=== PATIENT | female | born 2000 | race Two or more races ===

== ENCOUNTER 2021-04-28 17:55 | Emergency (ER) | payer OTHER ==
[~2021-04-28] VITALS: Ht 160 cm; Wt 86.2 kg
[~2021-04-28 17:55] MED LIST: COCET TABLET1 EACH; KETO10TA2 PO; PERCOCET 5/3251 TAB PO
[2021-04-28] MEDS ORDERED: PEPCID AC20 MG PO (22:50)
[2021-04-28] MEDS ORDERED: INTESTINEX680 M1 PO (22:50)
[2021-04-28] MEDS ORDERED: NAPROXEN500 MG PO (22:50)
== END 2021-04-28 22:52 | disposition home or self-care (01) ==
LOC: ER
DX: R10.2 Pelvic and perineal pain (principal)

== ENCOUNTER 2021-11-14 08:11 | Emergency (ER) | payer OTHER ==
[~2021-11-14] VITALS: Ht 160 cm; Wt 81.6 kg
[~2021-11-14 08:11] MED LIST changes: +INTESTINEX680 M1 PO; +NAPROXEN500 MG PO; +PEPCID AC20 MG PO
== END 2021-11-14 11:21 | disposition home or self-care (01) ==
LOC: ER 08:11
DX: B34.9 Viral infection, unspecified (principal); R19.7 Diarrhea, unspecified; Z20.822 Contact with and (suspected) exposure to COVID-19